=== PATIENT | male | born 1990 | race American Indian/Alaskan Native ===

== ENCOUNTER 2022-08-20 19:01 | Emergency (ER) | payer MEDICAID, OTHER ==
[2022-08-20 20:06] VITALS: BP 142/84; PULSE 68
== END 2022-08-20 20:44 | disposition left against medical advice (07) ==
LOC: DL.ED 19:01
DX: M79.641 Pain in right hand (principal); Z72.0 Tobacco use
CPT/HCPCS: 73130-RT; 99282; 99283